=== PATIENT | male | born 1990 | race Caucasian/White ===

== ENCOUNTER 2017-01-27 17:20 | Emergency (ER) | payer MEDICAID ==
[~2017-01-27] VITALS: Ht 182.9 cm; Wt 66.0 kg
[~2017-01-27 17:20] MED LIST: EPIPEN INJ; FEXO1TAB29 PO; GUAN2TAB5 PO; IBUPROFEN PO; QUET300T5 PO; [UNRECOGNIZED DRUG - OTHER] PO
[2017-01-27 18:26] VITALS: BP 133/94
[2017-01-27] MEDS ORDERED: ONDANSETRON ODT 4 MG PO ONE (20:00)
[2017-01-27] MEDS ORDERED: ACETAMINOPHEN 325 MG TABLET PO ONE (20:00)
[2017-01-27] MEDS ORDERED: ONDANSETRON ODT 4 MG ONE (20:01)
[2017-01-27] MEDS ORDERED: ACETAMINOPHEN 325 MG TABLET ONE (20:01)
== END 2017-01-27 20:16 | disposition home or self-care (01) ==
LOC: ED 18:17
DX: S06.0X0A Concussion without loss of consciousness, initial encounter (principal); S09.90XA Unspecified injury of head, initial encounter; I10 Essential (primary) hypertension; X58.XXXA Exposure to other specified factors, initial encounter; Y93.89 Activity, other specified; Y92.410 Unspecified street and highway as the place of occurrence of the external cause; Y99.9 Unspecified external cause status
CPT/HCPCS: 70450; 99284

== ENCOUNTER 2017-12-25 18:57 | Emergency (ER) | payer MEDICAID ==
[~2017-12-25] VITALS: Ht 182.9 cm; Wt 64.0 kg
[2017-12-25] MEDS ORDERED: LORazepam 1MG TABLET PO ONE (19:30)
[2017-12-25 19:46] LABS: MEAN CORPUSCULAR HEMOGLOBIN 30.3 pg (27.5-34.5); MEAN CORPUSCULAR HGB CONC 34.1 g/dL (33.2-36.2); MEAN CORPUSCULAR VOLUME 88.7 fL (81-97); MEAN PLATELET VOLUME 8.1 fL (7.4-10.4); PLATELET COUNT 272 x10^3/uL (130-400); RED CELL DISTRIBUTION WIDTH 13.5 % (9.4-14.8)
[2017-12-25 19:56] LABS: ALANINE AMINOTRANSFERASE 27 U/L (12-78); ALBUMIN 4.5 g/dL (3.4-5.0); ANION GAP 7 mmol/L (5-15); CALCIUM 8.9 mg/dL (8.5-10.1); CHLORIDE 106 mmol/L (98-107); CREATININE 1.18 mg/dL (0.7-1.3)
[2017-12-25 19:58] LABS: SALICYLATE LEVEL < 1.7 mg/dL (2.8-20.0)
[2017-12-25 19:59] LABS: ALKALINE PHOSPHATASE 70 U/L (45-117); BILIRUBIN,TOTAL 1.4 mg/dL (0.2-1.0); TOTAL PROTEIN 7.7 g/dL (6.4-8.2)
[2017-12-25] MEDS ORDERED: SODIUM CHLORIDE 0.9% 1,000ML IVBOLUS ONE (20:00)
[2017-12-25 20:03] LABS: ACETAMINOPHEN < 2 mcg/mL (10-30)
[2017-12-25 20:06] LABS: AMPHETAMINE SCREEN, URINE Negative (Negative); BARBITURATE SCREEN, URINE Negative (Negative); BENZODIAZEPINE SCREEN, URINE Negative (Negative); CANNABINOID SCREEN, URINE Positive (Negative); COCAINE SCREEN, URINE Negative (Negative); METHADONE SCREEN, URINE Negative (Negative); OPIATE SCREEN, URINE Negative (Negative)
[2017-12-25 20:10] LABS: BASOPHILS # (AUTO) 0.05 x10^3/uL (0-0.1); BASOPHILS % (AUTO) 0 % (0-1); EOSINOPHILS % (AUTO) 0 % (1-7); LYMPHOCYTES # (AUTO) 0.67 x10^3/uL (1-3.4); LYMPHOCYTES % (AUTO) 3 % (22-44); MD SCAN; MONOCYTES % (AUTO) 2 % (2-9); NEUTROPHILS # (AUTO) 19.61 x10^3/uL (1.8-6.8); NEUTROPHILS % (AUTO) 94 % (42-75)
[2017-12-25 20:37] LABS: MICROSCOPIC INDICATED
[2017-12-25 20:39] LABS: CULTURE INDICATED? NO
[2017-12-25 21:20] VITALS: BP 119/78
== END 2017-12-25 21:43 | disposition home or self-care (01) ==
LOC: ED 20:41
DX: F12.122 Cannabis abuse with intoxication with perceptual disturbance (principal); F41.9 Anxiety disorder, unspecified; E86.0 Dehydration; I10 Essential (primary) hypertension; Z79.899 Other long term (current) drug therapy
CPT/HCPCS: 36415; 80053; 80307; 80329; 81001; 82550; 85025; 93005; 96360; 99285; J7030; G0480

== ENCOUNTER 2020-01-02 19:25 | Emergency (ER) | payer MEDICAID ==
[~2020-01-02] VITALS: Ht 185.4 cm; Wt 70.5 kg
[2020-01-02 19:25] VITALS: BP 155/89
--- NOTE | 2020-01-02 19:41 | NUR ---
PT BIB [facility] FOR INTERMITTENT CP FOR 2 WEEKS WORSE WITH BREATING AND PALPATION. PT DENEIS NEW COUGH. PT HAS HX OF ANXIETY, ADHD, AND DEPRESSION. PT ON MONITOR, EKG DONE.
[2020-01-02 19:46] LABS: BASOPHILS # (AUTO) 0.06 x10^3/uL (0-0.1); BASOPHILS % (AUTO) 1 % (0-1); EOSINOPHILS # (AUTO) 0.14 x10^3/uL (0-0.4); EOSINOPHILS % (AUTO) 2 % (1-7); LYMPHOCYTES % (AUTO) 26 % (22-44); MD NO; MEAN CORPUSCULAR HEMOGLOBIN 29.8 pg (27.5-34.5); MEAN CORPUSCULAR HGB CONC 33.5 g/dL (33.2-36.2); MEAN CORPUSCULAR VOLUME 88.9 fL (81-97); MEAN PLATELET VOLUME 7.9 fL (7.4-10.4); MONOCYTES # (AUTO) 0.73 x10^3/uL (0.2-0.8); MONOCYTES % (AUTO) 9 % (2-9); NEUTROPHILS % (AUTO) 63 % (42-75); PLATELET COUNT 234 x10^3/uL (130-400); RED BLOOD COUNT 5.71 x10^6/uL (4.38-5.82); RED CELL DISTRIBUTION WIDTH 13.1 % (9.4-14.8)
[2020-01-02] MEDS ORDERED: TRAZ-175 PO (19:47)
[2020-01-02] MEDS ORDERED: RISP2TAB3 PO (19:47)
[2020-01-02] MEDS ORDERED: OXCA300T3 PO ×2 (19:47)
[2020-01-02 19:56] LABS: ALBUMIN 4.1 g/dL (3.4-5.0); ANION GAP 7 mmol/L (5-15); CHLORIDE 107 mmol/L (98-107)
[2020-01-02] MEDS ORDERED: MORPHINE SULFATE 4 MG/ML, 1ML IVPush ONE (20:00)
[2020-01-02] MEDS ORDERED: ONDANSETRON 2MG/ML, 2ML IVPush ONE (20:00)
[2020-01-02 20:01] LABS: CREATININE 1.03 mg/dL (0.7-1.3); TROPONIN I < 0.015 ng/mL (0.000-0.045)
== END 2020-01-02 20:18 | disposition home or self-care (01) ==
LOC: ED 20:15
DX: R07.89 Other chest pain (principal); R06.02 Shortness of breath; F10.10 Alcohol abuse, uncomplicated; Z72.9 Problem related to lifestyle, unspecified; R00.0 Tachycardia, unspecified; I10 Essential (primary) hypertension; Y90.9 Presence of alcohol in blood, level not specified
CPT/HCPCS: 36415; 71046; 80048; 82040; 84484; 85025; 93005; 99285